=== PATIENT | female | born 1990 | race Caucasian/White ===

== ENCOUNTER 2021-05-29 16:07 | Emergency (ER) | payer MEDICAID, OTHER ==
[~2021-05-29] VITALS: Ht 177.8 cm; Wt 79.0 kg
[2021-05-29] MEDS ORDERED: METHOCARBAMOL 500MG TABLET PO ONE (16:45)
[2021-05-29] MEDS ORDERED: KETOROLAC 60MG/2ML VIAL IM ONE (16:45)
[2021-05-29 16:48] VITALS: BP 131/92
[2021-05-29] MEDS ORDERED: NAPR-681 MT (17:31)
== END 2021-05-29 17:42 | disposition home or self-care (01) ==
LOC: ER 16:07
DX: M25.512 Pain in left shoulder (principal)
CPT/HCPCS: 73030; 81025; 96372; 99283; J1885